=== PATIENT | male | born 1960 | race Caucasian/White ===

== ENCOUNTER 2020-08-05 06:49 | Day surgery (SDC) | payer OTHER, SELFPAY ==
[~2020-08-05] VITALS: Ht 185.4 cm; Wt 88.5 kg
[2020-08-05] MEDS ORDERED: fentaNYL citrate 0.05 MG/ML VIAL ONE (08:38)
[2020-08-05] MEDS ORDERED: LIDOCAINE 2% 100 MG/5 ML UJET TP ONE (08:38)
[2020-08-05] MEDS ORDERED: EPINEPHrine PFS 0.1 MG/ML SYR IVP ONE (08:45)
[2020-08-05] MEDS ORDERED: PROPOFOL 200 MG/20 ML VIAL IV ONE (09:02)
== END 2020-08-05 11:55 | disposition home or self-care (01) ==
LOC: MFCC 06:49 → MDS 06:49
PROVIDERS: ATTEND Internal Medicine Gastroenterology
DX: Z12.11 Encounter for screening for malignant neoplasm of colon (principal); D12.4 Benign neoplasm of descending colon; E78.00 Pure hypercholesterolemia, unspecified; F17.210 Nicotine dependence, cigarettes, uncomplicated; Z79.899 Other long term (current) drug therapy; Z20.828 Contact with and (suspected) exposure to other viral communicable diseases
CPT/HCPCS: 45381; 45385; J0171; J2704; J7030; U0003; J3010